=== PATIENT | female | born 1955 | race Caucasian/White ===

== ENCOUNTER 2021-03-08 22:22 | Emergency (ER) | payer OTHER ==
[~2021-03-08] VITALS: Ht 154.9 cm; Wt 126.1 kg
[2021-03-08] MEDS ORDERED: OMEPRAZOLE40 MG (22:47)
[2021-03-08] MEDS ORDERED: NOVOLIN 70100 UNIT/5 SUBQ (22:47)
[2021-03-08] MEDS ORDERED: MAGNESIUM250 M1 PO (22:48)
[2021-03-08 23:25] LABS: ABSOLUTE NEUTROPHILS 6.3 thou/uL (1.4-8.2); EOSINOPHILS 2.6 % (0.0-3.0); HEMATOCRIT 36.5 % (37.0-47.0); HEMOGLOBIN 11.4 gm/dL (12.0-15.0); LYMPHOCYTES 17.1 % (24.0-44.0); MCH 23.5 pg (26.0-34.0); MCHC 31.1 g/dL (28.0-37.0); MCV 75.5 fL (80.0-100.0); MONOCYTES 6.8 % (1.0-8.0); PLATELET COUNT 279 thou/uL (150-400); POLYS 72.5 % (36.0-66.0); RBC 4.84 mil/uL (4.20-5.00); RDW 15.6 % (10.5-14.5); WBC 8.7 thou/uL (4.0-11.0)
[2021-03-08 23:30] LABS: CALCIUM 8.6 mg/dL (8.5-10.1); CREATININE 0.8 mg/dL (0.6-1.0); POTASSIUM 4.8 mmol/L (3.5-5.1)
[2021-03-08 23:37] LABS: ALBUMIN 2.8 g/dL (3.4-5.0); TOTAL BILIRUBIN 0.4 mg/dL (0.2-1.0); TOTAL PROTEIN 7.6 g/dL (6.4-8.2)
[2021-03-09] MEDS ORDERED: NEURONTIN 300M300 M2 PO (04:30)
[2021-03-09 04:51] VITALS: BP 157/62
== END 2021-03-09 05:03 | disposition home or self-care (01) ==
LOC: ER 22:22
PROVIDERS: Emergency Medicine
DX: R51.9 Headache, unspecified (principal); Z79.4 Long term (current) use of insulin; Z79.899 Other long term (current) drug therapy; Z88.2 Allergy status to sulfonamides